=== PATIENT | male | born 2000 ===

== ENCOUNTER 2022-04-13 04:03 | Emergency (ER) | payer MEDICAID ==
[2022-04-13 07:11] LABS: Basophils # (Auto) 0.1 K/mm3 (0.0-0.1); Eosinophils # (Auto) 0.8 K/mm3 (0.0-0.4); Eosinophils % (Auto) 7.4 % (0.0-4.3); Hematocrit 35.4 % (35.5-45.6); Hemoglobin 11.7 gm/dl (11.8-15.2); Lymphocytes # (Auto) 2.6 K/mm3 (1.2-5.4); Lymphocytes % (Auto) 23.8 % (13.4-35.0); Mean Corpuscular HGB Conc 33 % (32-34); Mean Corpuscular Volume 89 fl (84-94); Platelet Count 206 K/mm3 (140-440); Red Cell Distribution Width 13.6 % (13.2-15.2)
[2022-04-13 07:26] LABS: BUN/Creatinine Ratio 13; Blood Urea Nitrogen 15 mg/dL (9-20); Calcium 9.1 mg/dL (8.4-10.2); Hemolysis Index 14
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
--- NOTE | 2022-04-13 18:32 | Emergency Department Report ---
ED Psych HPI - General Chief Complaint: Psych Stated Complaint: PSYCH EVAL Time Seen by Provider: 04/13/22 11:45 Source: patient Mode of arrival: Ambulatory - History of Present Illness Initial Comments: Patient is a 21-year-old male with history of bipolar disorder brought in by police for psychiatric assessment after being found wandering around the hospital. States he was recently at [facility] and wishes to go back there however cannot until he gets cleared here. He denies any SI/HI or auditory/visual hallucinations. - Related Data Home Medications Medication Instructions Recorded Confirmed Last Taken ARIPiprazole [Abilify TAB] 2 mg PO DAILY 04/13/22 04/13/22 Unknown Sertraline [Zoloft] 50 mg PO QDAY 04/13/22 04/13/22 Unknown Allergies Allergy/AdvReac Type Severity Reaction Status Date / Time No Known Allergies Allergy Unverified 04/13/22 05:46 ED Review of Systems ROS: Stated complaint: PSYCH EVAL Other details as noted in HPI Comment: All other systems reviewed and negative Constitutional: denies: chills, fever Respiratory: denies: cough, shortness of breath, wheezing Cardiovascular: denies: chest pain, palpitations Gastrointestinal: denies: abdominal pain, nausea, diarrhea Genitourinary: denies: urgency, dysuria Musculoskeletal: denies: back pain, joint swelling, arthralgia Skin: denies: rash, lesions Neurological: denies: headache, weakness, paresthesias Psychiatric: denies: anxiety, depression ED Past Medical Hx - Past Medical History Previous Medical History?: Yes Hx Psychiatric Treatment: Yes (bipolar) - Surgical History Past Surgical History?: No - Social History Smoking Status: Never Smoker Substance Use Type: None - Medications Home Medications: Home Medications Medication Instructions Recorded Confirmed Last Taken Type ARIPiprazole [Abilify TAB] 2 mg PO DAILY 04/13/22 04/13/22 Unknown History Sertraline [Zoloft] 50 mg PO QDAY 04/13/22 04/13/22 Unknown History ED Physical Exam - General Limitations: Other General appearance: alert - Head Head exam: Present: atraumatic, normocephalic - Respiratory Respiratory exam: Present: normal lung sounds bilaterally. Absent: respiratory distress - Cardiovascular Cardiovascular Exam: Present: regular rate, normal rhythm, normal heart sounds - GI/Abdominal GI/Abdominal exam: Present: soft. Absent: distended, tenderness - Rectal Rectal exam: Present: deferred - Neurological Exam Neurological exam: Present: alert - Psychiatric Psychiatric exam: Present: normal affect, normal mood. Absent: homicidal ideation, suicidal ideation - Skin Skin exam: Present: warm, dry, intact, normal color ED Course Vital Signs 04/13/22 04/13/22 05:47 06:50 Temperature 98.4 F Pulse Rate 90 Respiratory 18 22 Rate Blood Pressure 132/78 O2 Sat by Pulse 100 100 Oximetry ED Medical Decision Making - Lab Data Result diagrams: 04/13/22 06:57 04/13/22 06:57 - Medical Decision Making Labs grossly unremarkable. Patient initially assessed by psychiatry however unable to make definitive decision as of yet. Patient currently not a threat to himself or others. When I placed 1013 at this time. Critical care attestation.: If time is entered above; I have spent that time in minutes in the direct care of this critically ill patient, excluding procedure time. ED Disposition Clinical Impression: Encounter for psychiatric assessment Disposition: 30 STILL A PATIENT Is pt being admited?: No Condition: Stable
--- NOTE | 2022-04-14 09:22 | Progress Note ---
Subjective - Reason for Consult Consult date: 04/14/22 Reason for consult: MHE - Chief Complaint Chief complaint: The patient was seen today. He is awake. He is calm and cooperative. The patient is polite. He says he's doing "fine." The patient says he was brought here by the police for a psych eval. He says he has schizophrenia and takes risperidone, abilify and depakote. The patient says he takes them every day. 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 The patient denies SI/HI or hallucinations of any kind. Attempted to call Mr. Tejeda with [employer] to inform him that the patient was clear from a psych standpoint, but did not get an answer. I left a voicemail. REVIEW OF SYSTEMS Constitutional: Negative for weight loss ENT: Negative for stridor Respiratory: Negative for cough or hemoptysis All other systems reviewed and are negative MENTAL STATUS EXAMINATION General Appearance and Behavior: Age appropriate, good hygiene, wearing appropriate clothes, fair eye contact, cooperative Cooperation: Participating/engaged Psychomotor Behavior: Psychomotor normal Mood: okay Affect and affective range: congruent with stated mood Thought Process: circumstantial Thought Content: Speech: normal tone and pace Suicidal Ideation: Denies Homicidal Ideation: Denies Hallucinations: Denies Delusions: None elicited Impulse Control: Limited Insight and Judgment: limited insight and judgment Memory: poor Attention: distracted Orientation: Alert, oriented Diagnoses: Encounter for Mental Health Eval Treatment Plan Continue previously prescribed meds by outpatient provider PSYCHOTHERAPY: Supportive psychotherapy provided MEDICAL: Per primary team DELIRIUM PRECAUTIONS: Please re-orient patient frequently, keep lights on during the day, and minimize benzodiazepines and opiates as these medications could worsen patient's confusion. 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 Thank you for this consult. Case staffed with Dr. Calle Mental Status Exam - Vital signs Last Vital Signs Temp 97.6 F 04/14/22 03:05 Pulse 79 04/14/22 03:05 Resp 18 04/14/22 03:05 BP 106/69 04/14/22 03:05 Pulse Ox 99 04/14/22 03:05
[2022-04-14] MEDS ORDERED: ARIPiprazole 5 MG TAB PO ONE (14:36)
[2022-04-14] MEDS ORDERED: SERTRALINE 50 MG TAB PO ONE (14:36)
--- NOTE | 2022-04-14 14:39 | Event Note ---
Date: 04/14/22 VSS. Labs reviewed. Pt examined by me. He is calm, cooperative. Pt has not been given his regular medications since his ER presentation. Pt ordered for routine medications (Abilify, Zoloft). Per chart review, MH scrapper has documented that the pt has been cleared by mental health. Pt will be picked up by [facility] on tomorrow. He will remain in the ER for continued monitoring and management.
[2022-04-15 03:02] VITALS: BP 116/62
--- NOTE | 2022-04-15 04:40 | Event Note ---
Date: 04/15/22 The patient was evaluated in the emergency department for symptoms described in the history of present illness. He/she was evaluated in the context of the global COVID-19 pandemic, which necessitated consideration that the patient might be at risk for infection with the virus that causes COVID-19. Institutional protocols and algorithms that pertain to the evaluation of patients at risk for COVID-19 are in a state of rapid change based on information released by regulatory bodies including the CDC and federal and state organizations. These policies and algorithms were followed during the patient's care in the emergency department. Please note that these policies, procedures and recommendations changed on a rapid basis. Laboratory studies, vital signs, nursing documentation, ER documentation, and psychiatric documentation are reviewed and appreciated. Nursing team reports no acute events this morning or concerns. The patient is awake and ambulating and does not appear to be in any acute distress. The patient was deemed medically suitable for psychiatric disposition and placement during his initial ER evaluation. The psychiatric team have advised that he does not meet criteria for 1013 hold or involuntary confinement. Mr. Tejeda, his bank credit card collection clerk, is here to pick him up to take him to [place]. Vital Signs 04/13/22 04/13/22 04/13/22 05:47 06:50 20:00 Temperature 98.4 F 97.8 F Pulse Rate 90 76 Respiratory 18 22 16 Rate Blood Pressure 132/78 Blood Pressure 119/69 [Left] Blood Pressure [Right] O2 Sat by Pulse 100 100 98 Oximetry 04/14/22 04/14/22 04/14/22 03:05 10:18 20:09 Temperature 97.6 F 97.7 F 98.6 F Pulse Rate 79 78 82 Respiratory 18 18 18 Rate Blood Pressure Blood Pressure 106/69 110/60 115/74 [Left] Blood Pressure [Right] O2 Sat by Pulse 99 100 98 Oximetry 04/15/22 04/15/22 02:22 03:13 Temperature 98.6 F Pulse Rate 76 Respiratory 18 Rate Blood Pressure Blood Pressure [Left] Blood Pressure 116/62 [Right] O2 Sat by Pulse 98 100 Oximetry .
== END 2022-04-15 04:49 | disposition home or self-care (01) ==
LOC: ED 04:03
DX: Z13.30 Encounter for screening examination for mental health and behavioral disorders, unspecified (principal); F31.9 Bipolar disorder, unspecified
CPT/HCPCS: 36415; 80048; 80320; 85025; 99284; G0480